=== PATIENT | female | born 1990 | race Caucasian/White ===

== ENCOUNTER 2016-09-16 12:09 | Inpatient (IN) | payer MEDICAID ==
[~2016-09-16 12:09] MED LIST: AMOXICILLIN875 MG; AMOXICILLIN875 MG PO; AUGMENTIN 875-11 TAB PO; AURALGAN EAR DR15 ML OT; BCP; CIPRO500 MG PO; CIPRODEX OTIC7.5 ML OT; CLEOCIN HCL300 MG PO; CLINDAMYCIN HC300 MG PO; DARVOCET-N 1001 TAB PO; FLINTSTONE1 TAB.CHEW PO; IBUPROFEN800 MG PO; IRON1 TAB; LORTAB 5/500 TA1 TAB; LORTAB 5/500 TA1 TAB PO; NO HOME MEDS; NORCO 5/325 TAB1 TAB PO; OXYCODONE/APAP; PERCOCET 5/3251 TAB PO; PERCOCET 5MG/AP1 TA1 PO; PHENERGAN25 MG PO; PRENATAL1 EACH; PRENATAL1 EACH PO; PYRIDIUM200 MG PO; TORADOL10 MG PO; ZOFRAN ODT4 MG/UDTAB PO; ZOFRAN4 MG PO
[2016-09-17 11:34] LABS: BASO % 0.1 % (0-2); EOS % 0.9 % (0-7); EOSINOPHIL ABSOLUTE COUNT 0.1 tho/cmm (0.0-0.7); HCT-HEMATOCRIT 30.9 % (34.0-49.0); HGB-HEMOGLOBIN 10.4 gm/dl (12.0-15.5); IMMATURE GRANULOCYTES ABSOLUTE 0.09 tho/cmm (0-0.03); IMMATURE GRANULOCYTES PERCENT 0.6 % (0-0.3); LYMPH % 16.4 % (20-45); LYMPH ABSOLUTE COUNT 2.4 tho/cmm (0.8-4.5); MCH (MEAN CORPUSCULAR HGB) 30.8 pg (28.0-32.0); MCHC MEAN CORPUSCULAR HGB CONC 33.7 % (32.0-36.0); MCV (MEAN CELL VOLUME) 91.4 fl (82.0-96.0); MEAN PLATELET VOLUME 11.4 cmc (9.4-12.4); MONO % 5.9 % (0-12); MONOCYTE ABSOLUTE COUNT 0.9 tho/cmm (0.0-1.2); NEUTROPHILS % 76.1 % (40-80); PLATELET COUNT 236 tho/cmm (150-450); RED BLOOD COUNT 3.38 mil/cmm (4.00-5.20); RED CELL DISTRIBUTION WIDTH 13.4 % (12.4-16.4); WHITE BLOOD COUNT 14.5 tho/cmm (4.0-10.0)
[2016-09-18] MEDS ORDERED: IBUPROFEN800 M1 PO (11:07)
[2016-09-18] MEDS ORDERED: NORCO 5-325 TA1 EACH PO (11:08)
== END 2016-09-18 14:00 | DRG 775 ==
LOC: LDR 12:09 → OBGF 21:21
PROVIDERS: ADMIT Family Medicine
PROC: 10E0XZZ Delivery of Products of Conception, External Approach (ICD-10-PCS; principal; 2016-09-16)
PROC: 10907ZC Drainage of Amniotic Fluid, Therapeutic from Products of Conception, Via Natural or Artificial Opening (ICD-10-PCS; 2016-09-16)
DX: O99.334 Smoking (tobacco) complicating childbirth (principal); F17.210 Nicotine dependence, cigarettes, uncomplicated; Z37.0 Single live birth; Z3A.39 39 weeks gestation of pregnancy; Z91.018 Allergy to other foods
CPT/HCPCS: J2590; J3010